=== PATIENT | female | born 1965 | race Hispanic/Latino ===

== ENCOUNTER 2021-02-13 16:29 | Inpatient (IN) | payer SELFPAY ==
[2021-02-13] MEDS ORDERED: Aspirin Chewable 81 MG TAB ONE (17:50)
[2021-02-13] MEDS ORDERED: Dexamethasone 10 MG/ML VIAL ONE (17:50)
[2021-02-13] MEDS ORDERED: cefTRIAXone\\ROCEPHIN 2 GM VIAL ONE (17:50)
[2021-02-13] MEDS ORDERED: Azithromycin 500 MG VIAL ONE (17:51)
[2021-02-13 18:47] LABS: #Monocytes 0.6 10x3/uL (0.0-1.1); %Basophils 0.1 % (0.0-2.0); %Lymphocytes 10.2 % (18.0-47.0); %Monocytes 5.3 % (0.0-10.0); Hemoglobin 15.7 g/dL (12.0-15.5); Mean Corpuscular HGB CONC 33.2 g/dL (32.0-36.0); Mean Corpuscular Hemoglobin 28.9 pg (27.0-33.0); Mean Corpuscular Volume 87.1 fl (81.6-98.3); Mean Platelet Volume 11.6 fl (7.4-10.4); Platelet Count 224 10x3/uL (150-450); RBC Distribution Width 13.9 % (11.5-14.5); Red Blood Cell (RBC) Count 5.43 10x6/uL (3.90-5.03); White Blood Cell (WBC) Count 10.7 10x3/uL (3.5-10.5)
[2021-02-13 18:48] LABS: ALT (SGPT) 113 U/L (8-55); AST (SGOT) 107 U/L (5-34); Albumin 3.7 g/dL (3.5-5.0); Alkaline Phosphatase 77 U/L (40-110); Anion Gap 22 mmol/L (10-20); BUN (Urea Nitrogen) 25 mg/dL (9.8-20.1); Bilirubin, Total 0.3 mg/dL (0.2-1.2); CK (CPK) 205 U/L (29-168); Calc. Creatinine Clearance 0 mL/min (70-130); Calcium 9.1 mg/dL (7.8-10.44); Carbon Dioxide 15 mmol/L (22-29); Chloride 96 mmol/L (98-107); Glucose 257 mg/dL (70-105); Lipase 65 U/L (8-78); Potassium 5.8 mmol/L (3.5-5.1); Protein, Total 7.7 g/dL (6.0-8.3); Sodium 127 mmol/L (136-145)
[2021-02-13 22:58] LABS: ALT (SGPT) 89 U/L (8-55); AST (SGOT) 82 U/L (5-34); Alkaline Phosphatase 62 U/L (40-110); Anion Gap 16 mmol/L (10-20); BUN (Urea Nitrogen) 20 mg/dL (9.8-20.1); Bilirubin, Total 0.2 mg/dL (0.2-1.2); Calc. Creatinine Clearance 0 mL/min (70-130); Carbon Dioxide 14 mmol/L (22-29); Chloride 103 mmol/L (98-107); Globulin 3.2 g/dL (2.4-3.5); Glucose 275 mg/dL (70-105); Potassium 5.7 mmol/L (3.5-5.1); Protein, Total 6.2 g/dL (6.0-8.3); Sodium 127 mmol/L (136-145)
[2021-02-13 23:03] LABS: Troponin I Less than 0.010 ng/mL (< 0.028)
[2021-02-14] MEDS ORDERED: Dextrose 5% in Water 1,000 ML IV PRN (01:29)
[2021-02-14] MEDS ORDERED: Dextrose 50% Abboject 50 ML SYRINGE SLOW IVP PRN (01:29)
[2021-02-14] MEDS ORDERED: Sodium Chloride 0.9% 1,000 ML IV SCH ×2 (01:30→01:45)
[2021-02-14] MEDS ORDERED: Senokot S 8.6-50 MG TAB PO PRN (01:35)
[2021-02-14] MEDS ORDERED: Ondansetron PF 4 MG/2 ML Vial IVP PRN (01:35)
[2021-02-14] MEDS ORDERED: Ondansetron ODT 4 MG TAB PO PRN (01:35)
[2021-02-14] MEDS: Acetaminophen 325 MG TAB PO PRN ×2 (03:16→21:01)
[2021-02-14] MEDS: HumaLOG 300 UNITS/3 ML VIAL SC PRN ×3 (03:46→21:01)
[2021-02-14 03:54] LABS: #Monocytes 0.3 10x3/uL (0.0-1.1); #Neutrophils 5.6 10x3/uL (1.5-8.4); %Lymphocytes 13.6 % (18.0-47.0); %Monocytes 4.5 % (0.0-10.0); %Neutrophils 81.5 % (40.0-75.0); Hemoglobin 12.5 g/dL (12.0-15.5); Mean Corpuscular HGB CONC 32.6 g/dL (32.0-36.0); Mean Corpuscular Hemoglobin 28.6 pg (27.0-33.0); Mean Corpuscular Volume 87.9 fl (81.6-98.3); Platelet Count 166 10x3/uL (150-450); RBC Distribution Width 13.9 % (11.5-14.5); Red Blood Cell (RBC) Count 4.37 10x6/uL (3.90-5.03); White Blood Cell (WBC) Count 6.9 10x3/uL (3.5-10.5)
[2021-02-14 03:55] LABS: Lactic Acid 2.1 mmol/L (0.5-2.2)
[2021-02-14 04:01] LABS: Anion Gap 15 mmol/L (10-20); BUN (Urea Nitrogen) 18 mg/dL (9.8-20.1); CRP (Inflammatory) 9.81 mg/dL (= or < 0.5); Calc. Creatinine Clearance 0 mL/min (70-130); Calcium 7.5 mg/dL (7.8-10.44); Carbon Dioxide 14 mmol/L (22-29); Chloride 107 mmol/L (98-107); Glucose 329 mg/dL (70-105); Potassium 4.6 mmol/L (3.5-5.1); Sodium 131 mmol/L (136-145)
[2021-02-14] MEDS ORDERED: Insulin Regular 300 UNITS/3 ML VIAL IVP SCH (05:45)
[2021-02-14] MEDS ORDERED: Lantus 1000 UNITS/10 ML VIAL SC SCH (09:00)
[2021-02-14] MEDS: Zinc Sulfate 220 MG CAP PO SCH ×2 (10:08→10:11)
[2021-02-14] MEDS: Dexamethasone 4 mg/ml Vial SLOW IVP SCH (10:08)
[2021-02-14] MEDS: Ascorbic Acid 500 mg Chewable Tablet PO SCH ×2 (10:08→10:10)
[2021-02-14] MEDS: Aspirin 81 mg Enteric Coated Tablet PO SCH (10:11)
[2021-02-14] MEDS: Enoxaparin Sodium 40 MG/0.4 ML SYRINGE SC SCH (10:11)
[2021-02-14] MEDS: Cholecalciferol 1,000 UNITS (25 MCG) TAB PO SCH (10:11)
[2021-02-14 13:41] LABS: Anion Gap 12 mmol/L (10-20); BUN (Urea Nitrogen) 19 mg/dL (9.8-20.1); Calc. Creatinine Clearance 84 mL/min (70-130); Calcium 8.4 mg/dL (7.8-10.44); Carbon Dioxide 18 mmol/L (22-29); Chloride 107 mmol/L (98-107); Glucose 277 mg/dL (70-105); Potassium 4.4 mmol/L (3.5-5.1); Sodium 133 mmol/L (136-145)
[2021-02-14] MEDS: Lantus 1000 UNITS/10 ML VIAL SC SCH (21:00)
[2021-02-15 06:28] LABS: ALT (SGPT) 55 U/L (8-55); AST (SGOT) 46 U/L (5-34); Albumin 2.9 g/dL (3.5-5.0); Alkaline Phosphatase 62 U/L (40-110); Anion Gap 12 mmol/L (10-20); BUN (Urea Nitrogen) 22 mg/dL (9.8-20.1); Bilirubin, Total 0.2 mg/dL (0.2-1.2); Calc. Creatinine Clearance 81 mL/min (70-130); Calcium 8.4 mg/dL (7.8-10.44); Carbon Dioxide 20 mmol/L (22-29); Chloride 108 mmol/L (98-107); Glucose 174 mg/dL (70-105); Magnesium 1.9 mg/dL (1.6-2.6); Potassium 3.9 mmol/L (3.5-5.1); Protein, Total 5.9 g/dL (6.0-8.3); Sodium 136 mmol/L (136-145)
[2021-02-15 06:37] LABS: #Monocytes 0.6 10x3/uL (0.0-1.1); #Neutrophils 8.8 10x3/uL (1.5-8.4); %Basophils 0.2 % (0.0-2.0); %Lymphocytes 14.6 % (18.0-47.0); %Monocytes 5.2 % (0.0-10.0); %Neutrophils 79.5 % (40.0-75.0); Hemoglobin 12.2 g/dL (12.0-15.5); Mean Corpuscular HGB CONC 33.1 g/dL (32.0-36.0); Mean Corpuscular Volume 87.6 fl (81.6-98.3); Platelet Count 202 10x3/uL (150-450); RBC Distribution Width 14.4 % (11.5-14.5); Red Blood Cell (RBC) Count 4.21 10x6/uL (3.90-5.03)
[2021-02-15] MEDS: Ascorbic Acid 500 mg Chewable Tablet PO SCH (08:28)
[2021-02-15] MEDS: Zinc Sulfate 220 MG CAP PO SCH (08:28)
[2021-02-15] MEDS: Lantus 1000 UNITS/10 ML VIAL SC SCH ×2 (08:29→20:50)
[2021-02-15] MEDS: Dexamethasone 4 mg/ml Vial SLOW IVP SCH (08:29)
[2021-02-15] MEDS: Aspirin 81 mg Enteric Coated Tablet PO SCH (08:29)
[2021-02-15] MEDS: Enoxaparin Sodium 40 MG/0.4 ML SYRINGE SC SCH (08:30)
[2021-02-15] MEDS: Cholecalciferol 1,000 UNITS (25 MCG) TAB PO SCH (08:30)
[2021-02-15 12:12] LABS: Hemoglobin A1c 8.1 % (4.0-6.0)
[2021-02-15] MEDS: Acetaminophen 325 MG TAB PO PRN ×2 (13:02→21:00)
[2021-02-15 18:37] LABS: SARS-CoV-2 NAA Rapid Test Not Detected (NotDetected)
[2021-02-15] MEDS: HumaLOG 300 UNITS/3 ML VIAL SC PRN (20:50)
[2021-02-16] MEDS: Aspirin 81 mg Enteric Coated Tablet PO SCH (09:14)
[2021-02-16] MEDS: Ascorbic Acid 500 mg Chewable Tablet PO SCH (09:14)
[2021-02-16] MEDS: Dexamethasone 4 mg/ml Vial SLOW IVP SCH (09:14)
[2021-02-16] MEDS: Enoxaparin Sodium 40 MG/0.4 ML SYRINGE SC SCH (09:14)
[2021-02-16] MEDS: Cholecalciferol 1,000 UNITS (25 MCG) TAB PO SCH (09:14)
[2021-02-16] MEDS: Lantus 1000 UNITS/10 ML VIAL SC SCH ×2 (09:15→22:22)
[2021-02-16] MEDS: Acetaminophen 325 MG TAB PO PRN (09:20)
[2021-02-16] MEDS: HumaLOG 300 UNITS/3 ML VIAL SC PRN ×2 (17:40→22:22)
[2021-02-16] MEDS ORDERED: Furosemide 20 MG/2 ML VIAL SLOW IVP SCH (17:45)
[2021-02-16] MEDS: cefTRIAXone\\ROCEPHIN 1 GM in Sodium Chloride 0.9% 100 ML IVPB SCH (19:30)
[2021-02-16] MEDS: Azithromycin 500 MG in Sodium Chloride 0.9% 250 ML 250 ML IVPB SCH (19:31)
[2021-02-16] MEDS: Atorvastatin Calcium 20 MG TAB PO SCH (20:56)
[2021-02-16] MEDS: Metoprolol Tartrate 25 MG TAB PO SCH (20:56)
[2021-02-16] MEDS: Benzonatate 100 MG CAP PO SCH (21:50)
[2021-02-16] MEDS: Mag-Al Plus 1200 MG/1200 MG/120 MG/30 ML UDCUP PO PRN (21:50)
[2021-02-17] MEDS: Guaifenesin DM 100-10/5 ML UDCUP PO PRN (04:50)
[2021-02-17 05:44] LABS: ALT (SGPT) 59 U/L (8-55); AST (SGOT) 51 U/L (5-34); Alkaline Phosphatase 70 U/L (40-110); Anion Gap 14 mmol/L (10-20); BUN (Urea Nitrogen) 14 mg/dL (9.8-20.1); Bilirubin, Total 0.3 mg/dL (0.2-1.2); CRP (Inflammatory) 11.59 mg/dL (= or < 0.5); Calc. Creatinine Clearance 97 mL/min (70-130); Calcium 8.8 mg/dL (7.8-10.44); Carbon Dioxide 22 mmol/L (22-29); Chloride 109 mmol/L (98-107); Globulin 3.4 g/dL (2.4-3.5); Glucose 163 mg/dL (70-105); Potassium 4.1 mmol/L (3.5-5.1); Protein, Total 6.4 g/dL (6.0-8.3); Sodium 141 mmol/L (136-145)
[2021-02-17] MEDS: HumaLOG 300 UNITS/3 ML VIAL SC PRN ×3 (06:16→22:41)
[2021-02-17] MEDS: Benzonatate 100 MG CAP PO SCH ×3 (06:31→20:35)
[2021-02-17] MEDS: Ascorbic Acid 500 mg Chewable Tablet PO SCH (08:42)
[2021-02-17] MEDS: Lisinopril 10 MG TAB PO SCH (08:42)
[2021-02-17] MEDS: Zinc Sulfate 220 MG CAP PO SCH (08:42)
[2021-02-17] MEDS: Clopidogrel Bisulfate 75 MG TAB PO SCH (08:43)
[2021-02-17] MEDS: Metoprolol Tartrate 25 MG TAB PO SCH ×2 (08:43→20:35)
[2021-02-17] MEDS: Cholecalciferol 1,000 UNITS (25 MCG) TAB PO SCH (08:43)
[2021-02-17] MEDS: Aspirin 81 mg Enteric Coated Tablet PO SCH (08:43)
[2021-02-17] MEDS: Enoxaparin Sodium 40 MG/0.4 ML SYRINGE SC SCH (08:44)
[2021-02-17] MEDS: Dexamethasone 4 mg/ml Vial SLOW IVP SCH ×2 (08:44→20:33)
[2021-02-17] MEDS: Lantus 1000 UNITS/10 ML VIAL SC SCH ×2 (08:45→20:39)
[2021-02-17 12:10] LABS: Actual Bicarbonate (HCO3a) 23.8 mEq/L (22-28); Base Excess (BEa) -0.4 mEq/L (-2.0 to +3.0); CO2 Tension 37.7 mmHg (35.0-45.0); Calcium, Ionized (arterial) 1.15 mmol/L (1.12-1.30); Carboxyhemoglobin (COHb) 0.3 gm% (0.0-3.0); Hemoglobin (Hb) 13.2 g/dL (12.0-16.0); O2 Tension (PaO2), arterial 70.1 mmHg (80.0-100.0); Potassium - ABG Lab 4.5 mmol/L (3.70-5.30); Puncture Site LRA; pH, Arterial 7.42 (7.35-7.45)
[2021-02-17 12:16] LABS: ALV-art Gradient 310.575 mmHg (0-20)
[2021-02-17] MEDS ORDERED: Famotidine 20 MG TAB PO SCH (13:15)
[2021-02-17] MEDS: Azithromycin 500 MG in Sodium Chloride 0.9% 250 ML 250 ML IVPB SCH (17:48)
[2021-02-17] MEDS: cefTRIAXone\\ROCEPHIN 1 GM in Sodium Chloride 0.9% 100 ML IVPB SCH (18:10)
[2021-02-17] MEDS: Acetaminophen 325 MG TAB PO PRN (20:31)
[2021-02-17] MEDS: Atorvastatin Calcium 20 MG TAB PO SCH (20:33)
[2021-02-17] MEDS: Famotidine 20 MG TAB PO SCH (20:34)
[2021-02-18] MEDS: HumaLOG 300 UNITS/3 ML VIAL SC PRN ×6 (00:15→20:18)
[2021-02-18 04:14] LABS: #Monocytes 0.3 10x3/uL (0.0-1.1); #Neutrophils 8.4 10x3/uL (1.5-8.4); %Basophils 0.4 % (0.0-2.0); %Lymphocytes 12.1 % (18.0-47.0); %Monocytes 2.9 % (0.0-10.0); %Neutrophils 80.2 % (40.0-75.0); Hemoglobin 11.7 g/dL (12.0-15.5); Mean Corpuscular HGB CONC 32.7 g/dL (32.0-36.0); Mean Corpuscular Hemoglobin 29.3 pg (27.0-33.0); Mean Corpuscular Volume 89.5 fl (81.6-98.3); Mean Platelet Volume 9.1 fl (7.4-10.4); RBC Distribution Width 14.3 % (11.5-14.5); White Blood Cell (WBC) Count 10.4 10x3/uL (3.5-10.5)
[2021-02-18 04:34] LABS: ALT (SGPT) 81 U/L (8-55); AST (SGOT) 55 U/L (5-34); Alkaline Phosphatase 79 U/L (40-110); Anion Gap 14 mmol/L (10-20); BUN (Urea Nitrogen) 21 mg/dL (9.8-20.1); Bilirubin, Total 0.4 mg/dL (0.2-1.2); Calc. Creatinine Clearance 90 mL/min (70-130); Calcium 8.9 mg/dL (7.8-10.44); Carbon Dioxide 23 mmol/L (22-29); Chloride 108 mmol/L (98-107); Globulin 3.3 g/dL (2.4-3.5); Glucose 234 mg/dL (70-105); Potassium 4.4 mmol/L (3.5-5.1); Protein, Total 6.3 g/dL (6.0-8.3); Sodium 141 mmol/L (136-145)
[2021-02-18] MEDS: Benzonatate 100 MG CAP PO SCH ×3 (05:08→20:17)
[2021-02-18 07:22] LABS: Platelet Count 312 10x3/uL (150-450)
[2021-02-18] MEDS: Lisinopril 10 MG TAB PO SCH (08:10)
[2021-02-18] MEDS: Metoprolol Tartrate 25 MG TAB PO SCH ×2 (08:10→20:17)
[2021-02-18] MEDS: Famotidine 20 MG TAB PO SCH ×2 (08:10→20:16)
[2021-02-18] MEDS: Enoxaparin Sodium 40 MG/0.4 ML SYRINGE SC SCH (08:10)
[2021-02-18] MEDS: Cholecalciferol 1,000 UNITS (25 MCG) TAB PO SCH (08:10)
[2021-02-18] MEDS: Aspirin 81 mg Enteric Coated Tablet PO SCH (08:10)
[2021-02-18] MEDS: Clopidogrel Bisulfate 75 MG TAB PO SCH (08:11)
[2021-02-18] MEDS: Dexamethasone 4 mg/ml Vial SLOW IVP SCH ×2 (08:11→20:16)
[2021-02-18] MEDS: Ascorbic Acid 500 mg Chewable Tablet PO SCH (08:11)
[2021-02-18] MEDS: Zinc Sulfate 220 MG CAP PO SCH (08:11)
[2021-02-18] MEDS: Lantus 1000 UNITS/10 ML VIAL SC SCH ×2 (08:17→20:17)
[2021-02-18] MEDS ORDERED: Furosemide 20 MG/2 ML VIAL SLOW IVP SCH (10:30)
[2021-02-18 11:43] LABS: Actual Bicarbonate (HCO3a) 25.3 mEq/L (22-28); Base Excess (BEa) 2.1 mEq/L (-2.0 to +3.0); CO2 Tension 34.5 mmHg (35.0-45.0); Calcium, Ionized (arterial) 1.18 mmol/L (1.12-1.30); Carboxyhemoglobin (COHb) 0.1 gm% (0.0-3.0); Hemoglobin (Hb) 12.4 g/dL (12.0-16.0); O2 Tension (PaO2), arterial 48.9 mmHg (80.0-100.0); Potassium - ABG Lab 4.3 mmol/L (3.70-5.30); Puncture Site LBA; pH, Arterial 7.48 (7.35-7.45)
[2021-02-18 11:46] LABS: ALV-art Gradient 407.075 mmHg (0-20)
[2021-02-18] MEDS: Acetaminophen 325 MG TAB PO PRN ×2 (13:53→20:15)
[2021-02-18] MEDS: cefTRIAXone\\ROCEPHIN 1 GM in Sodium Chloride 0.9% 100 ML IVPB SCH (17:20)
[2021-02-18] MEDS: Azithromycin 500 MG in Sodium Chloride 0.9% 250 ML 250 ML IVPB SCH (18:08)
[2021-02-18] MEDS: Atorvastatin Calcium 20 MG TAB PO SCH (20:16)
[2021-02-19 04:27] LABS: Hemoglobin 11.5 g/dL (12.0-15.5); Mean Corpuscular HGB CONC 32.5 g/dL (32.0-36.0); Mean Corpuscular Volume 89.2 fl (81.6-98.3); Mean Platelet Volume 9.7 fl (7.4-10.4); Platelet Count 308 10x3/uL (150-450); RBC Distribution Width 14.3 % (11.5-14.5); Red Blood Cell (RBC) Count 3.97 10x6/uL (3.90-5.03); White Blood Cell (WBC) Count 10.5 10x3/uL (3.5-10.5)
[2021-02-19 04:37] LABS: ALT (SGPT) 107 U/L (8-55); AST (SGOT) 55 U/L (5-34); Alkaline Phosphatase 76 U/L (40-110); Anion Gap 11 mmol/L (10-20); BUN (Urea Nitrogen) 27 mg/dL (9.8-20.1); Bilirubin, Total 0.4 mg/dL (0.2-1.2); Calc. Creatinine Clearance 96 mL/min (70-130); Calcium 9.2 mg/dL (7.8-10.44); Carbon Dioxide 26 mmol/L (22-29); Chloride 109 mmol/L (98-107); Globulin 3.3 g/dL (2.4-3.5); Glucose 221 mg/dL (70-105); Potassium 4.2 mmol/L (3.5-5.1); Protein, Total 6.3 g/dL (6.0-8.3); Sodium 142 mmol/L (136-145)
[2021-02-19] MEDS: HumaLOG 300 UNITS/3 ML VIAL SC PRN ×5 (04:52→21:57)
[2021-02-19 05:10] LABS: MDiff Complete? YES
[2021-02-19 05:16] LABS: Band 4 % (5-11); Lymphocytes 9 % (21-51); Monocytes 9 % (0-10); Myelocyte 1 % (0-0); Neutrophil 76 % (42-75); Reactive Lymphocytes 1 % (0-10)
[2021-02-19] MEDS: Benzonatate 100 MG CAP PO SCH ×3 (07:26→21:47)
[2021-02-19] MEDS: Lantus 1000 UNITS/10 ML VIAL SC SCH ×2 (07:37→21:55)
[2021-02-19] MEDS: Dexamethasone 4 mg/ml Vial SLOW IVP SCH ×2 (07:38→21:46)
[2021-02-19] MEDS: Enoxaparin Sodium 40 MG/0.4 ML SYRINGE SC SCH (07:39)
[2021-02-19] MEDS: Cholecalciferol 1,000 UNITS (25 MCG) TAB PO SCH (07:40)
[2021-02-19] MEDS: Zinc Sulfate 220 MG CAP PO SCH (07:40)
[2021-02-19] MEDS: Aspirin 81 mg Enteric Coated Tablet PO SCH (07:40)
[2021-02-19] MEDS: Lisinopril 10 MG TAB PO SCH (07:40)
[2021-02-19] MEDS: Famotidine 20 MG TAB PO SCH ×2 (07:40→21:46)
[2021-02-19] MEDS: Clopidogrel Bisulfate 75 MG TAB PO SCH (07:40)
[2021-02-19] MEDS: Ascorbic Acid 500 mg Chewable Tablet PO SCH ×2 (07:41→07:42)
[2021-02-19] MEDS: Metoprolol Tartrate 25 MG TAB PO SCH ×2 (07:42→21:47)
[2021-02-19 09:48] LABS: Actual Bicarbonate (HCO3a) 23.1 mEq/L (22-28); Base Excess (BEa) 0.3 mEq/L (-2.0 to +3.0); CO2 Tension 31.8 mmHg (35.0-45.0); Calcium, Ionized (arterial) 1.19 mmol/L (1.12-1.30); Carboxyhemoglobin (COHb) 0.3 gm% (0.0-3.0); Hemoglobin (Hb) 12.6 g/dL (12.0-16.0); O2 Tension (PaO2), arterial 73.3 mmHg (80.0-100.0); Puncture Site RRA; pH, Arterial 7.48 (7.35-7.45)
[2021-02-19] MEDS: cefTRIAXone\\ROCEPHIN 1 GM in Sodium Chloride 0.9% 100 ML IVPB SCH (17:09)
[2021-02-19] MEDS: Mag-Al Plus 1200 MG/1200 MG/120 MG/30 ML UDCUP PO PRN (17:09)
[2021-02-19] MEDS: Azithromycin 500 MG in Sodium Chloride 0.9% 250 ML 250 ML IVPB SCH (17:44)
[2021-02-19] MEDS: Atorvastatin Calcium 20 MG TAB PO SCH (21:46)
[2021-02-19] MEDS ORDERED: Lantus 1000 UNITS/10 ML VIAL SC SCH (22:00)
[2021-02-19] MEDS: Acetaminophen 325 MG TAB PO PRN (23:51)
[2021-02-20] MEDS: Mag-Al Plus 1200 MG/1200 MG/120 MG/30 ML UDCUP PO PRN (00:11)
[2021-02-20 05:23] LABS: Hemoglobin 11.2 g/dL (12.0-15.5); Mean Corpuscular HGB CONC 31.2 g/dL (32.0-36.0); Mean Corpuscular Hemoglobin 28.7 pg (27.0-33.0); Mean Corpuscular Volume 92.1 fl (81.6-98.3); Mean Platelet Volume 9.6 fl (7.4-10.4); Platelet Count 329 10x3/uL (150-450); RBC Distribution Width 14.1 % (11.5-14.5); White Blood Cell (WBC) Count 10.8 10x3/uL (3.5-10.5)
[2021-02-20 05:29] LABS: MDiff Complete? YES
[2021-02-20 05:36] LABS: ALT (SGPT) 87 U/L (8-55); AST (SGOT) 39 U/L (5-34); Albumin 3.1 g/dL (3.5-5.0); Alkaline Phosphatase 70 U/L (40-110); Anion Gap 12 mmol/L (10-20); BUN (Urea Nitrogen) 25 mg/dL (9.8-20.1); Bilirubin, Total 0.4 mg/dL (0.2-1.2); Calc. Creatinine Clearance 94 mL/min (70-130); Calcium 8.9 mg/dL (7.8-10.44); Carbon Dioxide 24 mmol/L (22-29); Chloride 108 mmol/L (98-107); Globulin 3.1 g/dL (2.4-3.5); Glucose 234 mg/dL (70-105); Potassium 4.6 mmol/L (3.5-5.1); Protein, Total 6.2 g/dL (6.0-8.3); Sodium 139 mmol/L (136-145)
[2021-02-20] MEDS: Benzonatate 100 MG CAP PO SCH ×3 (05:45→21:43)
[2021-02-20] MEDS: HumaLOG 300 UNITS/3 ML VIAL SC PRN ×5 (05:45→21:40)
[2021-02-20 05:46] LABS: Band 4 % (5-11); Lymphocytes 14 % (21-51); Metamyelocyte 2 % (0-0); Monocytes 4 % (0-10); Myelocyte 1 % (0-0); Neutrophil 74 % (42-75); Reactive Lymphocytes 1 % (0-10)
[2021-02-20] MEDS: Dexamethasone 4 mg/ml Vial SLOW IVP SCH ×2 (08:16→21:43)
[2021-02-20] MEDS: Enoxaparin Sodium 40 MG/0.4 ML SYRINGE SC SCH (08:16)
[2021-02-20] MEDS: Aspirin 81 mg Enteric Coated Tablet PO SCH (08:17)
[2021-02-20] MEDS: Zinc Sulfate 220 MG CAP PO SCH (08:17)
[2021-02-20] MEDS: Metoprolol Tartrate 25 MG TAB PO SCH ×2 (08:17→21:44)
[2021-02-20] MEDS: Famotidine 20 MG TAB PO SCH ×2 (08:17→21:43)
[2021-02-20] MEDS: Cholecalciferol 1,000 UNITS (25 MCG) TAB PO SCH (08:17)
[2021-02-20] MEDS: Lisinopril 10 MG TAB PO SCH (08:17)
[2021-02-20] MEDS: Clopidogrel Bisulfate 75 MG TAB PO SCH (08:18)
[2021-02-20] MEDS: Lantus 1000 UNITS/10 ML VIAL SC SCH ×2 (08:19→21:43)
[2021-02-20] MEDS: Acetylcysteine 20% 200 MG/ML 30 ML VIAL INH SCH ×2 (14:49→23:18)
[2021-02-20] MEDS: cefTRIAXone\\ROCEPHIN 1 GM in Sodium Chloride 0.9% 100 ML IVPB SCH (17:08)
[2021-02-20] MEDS: Azithromycin 500 MG in Sodium Chloride 0.9% 250 ML 250 ML IVPB SCH (18:22)
[2021-02-20] MEDS: Atorvastatin Calcium 20 MG TAB PO SCH (21:44)
[2021-02-21] MEDS: Guaifenesin DM 100-10/5 ML UDCUP PO PRN (00:20)
[2021-02-21] MEDS: Acetylcysteine 20% 200 MG/ML 30 ML VIAL INH SCH ×4 (03:04→22:10)
[2021-02-21 04:30] LABS: Hemoglobin 12.1 g/dL (12.0-15.5); Mean Corpuscular HGB CONC 32.3 g/dL (32.0-36.0); Mean Corpuscular Volume 89.9 fl (81.6-98.3); Mean Platelet Volume 9.6 fl (7.4-10.4); Platelet Count 348 10x3/uL (150-450); RBC Distribution Width 13.7 % (11.5-14.5); Red Blood Cell (RBC) Count 4.17 10x6/uL (3.90-5.03); White Blood Cell (WBC) Count 11.1 10x3/uL (3.5-10.5)
[2021-02-21 04:36] LABS: ALT (SGPT) 79 U/L (8-55); AST (SGOT) 33 U/L (5-34); Albumin 3.2 g/dL (3.5-5.0); Alkaline Phosphatase 79 U/L (40-110); Anion Gap 16 mmol/L (10-20); BUN (Urea Nitrogen) 20 mg/dL (9.8-20.1); Bilirubin, Total 0.5 mg/dL (0.2-1.2); Calc. Creatinine Clearance 96 mL/min (70-130); Calcium 9.1 mg/dL (7.8-10.44); Carbon Dioxide 22 mmol/L (22-29); Chloride 108 mmol/L (98-107); Globulin 3.3 g/dL (2.4-3.5); Glucose 186 mg/dL (70-105); Potassium 4.5 mmol/L (3.5-5.1); Protein, Total 6.5 g/dL (6.0-8.3); Sodium 141 mmol/L (136-145)
[2021-02-21] MEDS: Benzonatate 100 MG CAP PO SCH ×3 (05:17→20:46)
[2021-02-21 06:52] LABS: Band 6 % (5-11); Lymphocytes 10 % (21-51); Metamyelocyte 1 % (0-0); Monocytes 3 % (0-10); Myelocyte 1 % (0-0); Neutrophil 77 % (42-75); Reactive Lymphocytes 2 % (0-10)
[2021-02-21 06:54] LABS: Large Platelets SLIGHT; Platelet Morphology Comment Appears Adequate
[2021-02-21 06:55] LABS: MDiff Complete? YES; Manual Diff?? YES; RBC Morphology Normal
[2021-02-21] MEDS: Lisinopril 10 MG TAB PO SCH (08:01)
[2021-02-21] MEDS: Dexamethasone 4 mg/ml Vial SLOW IVP SCH ×2 (08:01→20:46)
[2021-02-21] MEDS: Ascorbic Acid 500 mg Chewable Tablet PO SCH (08:01)
[2021-02-21] MEDS: Cholecalciferol 1,000 UNITS (25 MCG) TAB PO SCH (08:01)
[2021-02-21] MEDS: Zinc Sulfate 220 MG CAP PO SCH (08:01)
[2021-02-21] MEDS: Famotidine 20 MG TAB PO SCH ×2 (08:01→20:45)
[2021-02-21] MEDS: Metoprolol Tartrate 25 MG TAB PO SCH ×2 (08:02→20:44)
[2021-02-21] MEDS: Aspirin 81 mg Enteric Coated Tablet PO SCH (08:02)
[2021-02-21] MEDS: Enoxaparin Sodium 40 MG/0.4 ML SYRINGE SC SCH (08:02)
[2021-02-21] MEDS: Clopidogrel Bisulfate 75 MG TAB PO SCH (08:02)
[2021-02-21] MEDS: Lantus 1000 UNITS/10 ML VIAL SC SCH ×2 (08:07→20:46)
[2021-02-21] MEDS: HumaLOG 300 UNITS/3 ML VIAL SC PRN ×4 (11:01→17:23)
[2021-02-21] MEDS: Acetaminophen 325 MG TAB PO PRN ×2 (13:48→20:44)
[2021-02-21] MEDS: cefTRIAXone\\ROCEPHIN 1 GM in Sodium Chloride 0.9% 100 ML IVPB SCH (17:23)
[2021-02-21] MEDS: Atorvastatin Calcium 20 MG TAB PO SCH (20:45)
[2021-02-22] MEDS: Acetylcysteine 20% 200 MG/ML 30 ML VIAL INH SCH ×4 (02:13→20:06)
[2021-02-22] MEDS: HumaLOG 300 UNITS/3 ML VIAL SC PRN ×3 (05:14→19:09)
[2021-02-22] MEDS: Benzonatate 100 MG CAP PO SCH ×3 (05:31→21:41)
[2021-02-22] MEDS: Lisinopril 10 MG TAB PO SCH ×2 (08:58→09:10)
[2021-02-22] MEDS: Metoprolol Tartrate 25 MG TAB PO SCH ×3 (08:59→21:44)
[2021-02-22] MEDS ORDERED: Dexamethasone 4 mg/ml Vial SLOW IVP SCH (09:00)
[2021-02-22] MEDS: Ascorbic Acid 500 mg Chewable Tablet PO SCH (09:09)
[2021-02-22] MEDS: Aspirin 81 mg Enteric Coated Tablet PO SCH (09:10)
[2021-02-22] MEDS: Clopidogrel Bisulfate 75 MG TAB PO SCH (09:10)
[2021-02-22] MEDS: Famotidine 20 MG TAB PO SCH ×2 (09:10→21:44)
[2021-02-22] MEDS: Zinc Sulfate 220 MG CAP PO SCH (09:10)
[2021-02-22] MEDS: Enoxaparin Sodium 40 MG/0.4 ML SYRINGE SC SCH (09:10)
[2021-02-22] MEDS: Cholecalciferol 1,000 UNITS (25 MCG) TAB PO SCH (09:10)
[2021-02-22] MEDS: Lantus 1000 UNITS/10 ML VIAL SC SCH ×2 (09:15→21:42)
[2021-02-22] MEDS: Acetaminophen 325 MG TAB PO PRN (10:30)
[2021-02-22] MEDS: Guaifenesin DM 100-10/5 ML UDCUP PO PRN (10:30)
[2021-02-22] MEDS: Mag-Al Plus 1200 MG/1200 MG/120 MG/30 ML UDCUP PO PRN (19:10)
[2021-02-22] MEDS: Atorvastatin Calcium 20 MG TAB PO SCH (21:44)
[2021-02-23] MEDS: Acetylcysteine 20% 200 MG/ML 30 ML VIAL INH SCH ×4 (00:17→20:38)
[2021-02-23 05:32] LABS: #Eosinphils 0.2 10x3/uL (0.0-0.5); #Monocytes 0.4 10x3/uL (0.0-1.1); #Neutrophils 12.8 10x3/uL (1.5-8.4); %Basophils 0.1 % (0.0-2.0); %Eosinophils 0.9 % (0.0-6.0); %Lymphocytes 18.8 % (18.0-47.0); %Monocytes 2.3 % (0.0-10.0); %Neutrophils 75.9 % (40.0-75.0); Hemoglobin 12.5 g/dL (12.0-15.5); Mean Corpuscular HGB CONC 31.4 g/dL (32.0-36.0); Mean Corpuscular Hemoglobin 28.9 pg (27.0-33.0); Mean Corpuscular Volume 91.9 fl (81.6-98.3); Mean Platelet Volume 10.1 fl (7.4-10.4); Platelet Count 397 10x3/uL (150-450); RBC Distribution Width 13.6 % (11.5-14.5); Red Blood Cell (RBC) Count 4.33 10x6/uL (3.90-5.03); White Blood Cell (WBC) Count 16.8 10x3/uL (3.5-10.5)
[2021-02-23 05:44] LABS: ALT (SGPT) 72 U/L (8-55); AST (SGOT) 38 U/L (5-34); Albumin 3.2 g/dL (3.5-5.0); Alkaline Phosphatase 64 U/L (40-110); Anion Gap 14 mmol/L (10-20); BUN (Urea Nitrogen) 26 mg/dL (9.8-20.1); Bilirubin, Total 0.5 mg/dL (0.2-1.2); Calc. Creatinine Clearance 100 mL/min (70-130); Calcium 9.1 mg/dL (7.8-10.44); Carbon Dioxide 21 mmol/L (22-29); Chloride 110 mmol/L (98-107); Globulin 3.1 g/dL (2.4-3.5); Glucose 83 mg/dL (70-105); Potassium 3.9 mmol/L (3.5-5.1); Protein, Total 6.3 g/dL (6.0-8.3); Sodium 141 mmol/L (136-145)
[2021-02-23] MEDS: Ascorbic Acid 500 mg Chewable Tablet PO SCH (08:50)
[2021-02-23] MEDS: Famotidine 20 MG TAB PO SCH ×2 (08:50→22:30)
[2021-02-23] MEDS: Cholecalciferol 1,000 UNITS (25 MCG) TAB PO SCH (08:50)
[2021-02-23] MEDS: Clopidogrel Bisulfate 75 MG TAB PO SCH (08:50)
[2021-02-23] MEDS: Dexamethasone 4 mg/ml Vial SLOW IVP SCH (08:50)
[2021-02-23] MEDS: Aspirin 81 mg Enteric Coated Tablet PO SCH (08:50)
[2021-02-23] MEDS: Zinc Sulfate 220 MG CAP PO SCH (08:50)
[2021-02-23] MEDS: Enoxaparin Sodium 40 MG/0.4 ML SYRINGE SC SCH (08:50)
[2021-02-23] MEDS: Benzonatate 100 MG CAP PO SCH ×3 (08:51→22:31)
[2021-02-23] MEDS: Guaifenesin DM 100-10/5 ML UDCUP PO PRN (08:56)
[2021-02-23] MEDS: Lisinopril 10 MG TAB PO SCH (08:56)
[2021-02-23] MEDS: Metoprolol Tartrate 25 MG TAB PO SCH ×2 (08:57→22:37)
[2021-02-23] MEDS: Lantus 1000 UNITS/10 ML VIAL SC SCH ×2 (08:57→22:32)
[2021-02-23] MEDS: Acetaminophen 325 MG TAB PO PRN (10:00)
[2021-02-23] MEDS: Atorvastatin Calcium 20 MG TAB PO SCH (22:30)
[2021-02-23] MEDS: HumaLOG 300 UNITS/3 ML VIAL SC PRN (22:33)
[2021-02-24] MEDS: Acetylcysteine 20% 200 MG/ML 30 ML VIAL INH SCH ×2 (03:00→06:36)
[2021-02-24 06:05] LABS: ALT (SGPT) 54 U/L (8-55); AST (SGOT) 22 U/L (5-34); Alkaline Phosphatase 63 U/L (40-110); Anion Gap 13 mmol/L (10-20); BUN (Urea Nitrogen) 22 mg/dL (9.8-20.1); Bilirubin, Total 0.4 mg/dL (0.2-1.2); Calc. Creatinine Clearance 105 mL/min (70-130); Calcium 8.9 mg/dL (7.8-10.44); Carbon Dioxide 22 mmol/L (22-29); Chloride 111 mmol/L (98-107); Globulin 3.1 g/dL (2.4-3.5); Glucose 65 mg/dL (70-105); Potassium 3.8 mmol/L (3.5-5.1); Protein, Total 6.1 g/dL (6.0-8.3); Sodium 142 mmol/L (136-145)
[2021-02-24 06:10] LABS: #Eosinphils 0.3 10x3/uL (0.0-0.5); #Monocytes 0.3 10x3/uL (0.0-1.1); #Neutrophils 8.5 10x3/uL (1.5-8.4); %Basophils 0.2 % (0.0-2.0); %Eosinophils 2.2 % (0.0-6.0); %Lymphocytes 20.7 % (18.0-47.0); %Monocytes 2.7 % (0.0-10.0); %Neutrophils 72.8 % (40.0-75.0); Hemoglobin 12.1 g/dL (12.0-15.5); Mean Corpuscular HGB CONC 31.5 g/dL (32.0-36.0); Mean Corpuscular Hemoglobin 28.6 pg (27.0-33.0); Mean Corpuscular Volume 90.8 fl (81.6-98.3); Mean Platelet Volume 10.2 fl (7.4-10.4); Platelet Count 333 10x3/uL (150-450); RBC Distribution Width 13.8 % (11.5-14.5); Red Blood Cell (RBC) Count 4.23 10x6/uL (3.90-5.03); White Blood Cell (WBC) Count 11.7 10x3/uL (3.5-10.5)
[2021-02-24 08:22] LABS: Glucose 288 mg/dL (70-105)
[2021-02-24] MEDS: Famotidine 20 MG TAB PO SCH ×2 (09:19→21:40)
[2021-02-24] MEDS: Guaifenesin DM 100-10/5 ML UDCUP PO PRN ×2 (09:19→17:45)
[2021-02-24] MEDS: Enoxaparin Sodium 40 MG/0.4 ML SYRINGE SC SCH (09:20)
[2021-02-24] MEDS: Aspirin 81 mg Enteric Coated Tablet PO SCH (09:20)
[2021-02-24] MEDS: Ascorbic Acid 500 mg Chewable Tablet PO SCH (09:20)
[2021-02-24] MEDS: Dexamethasone 4 mg/ml Vial SLOW IVP SCH (09:20)
[2021-02-24] MEDS: Zinc Sulfate 220 MG CAP PO SCH (09:21)
[2021-02-24] MEDS: Benzonatate 100 MG CAP PO SCH ×3 (09:21→21:40)
[2021-02-24] MEDS: Clopidogrel Bisulfate 75 MG TAB PO SCH (09:21)
[2021-02-24] MEDS: Cholecalciferol 1,000 UNITS (25 MCG) TAB PO SCH (09:21)
[2021-02-24] MEDS: Lantus 1000 UNITS/10 ML VIAL SC SCH ×2 (09:22→21:41)
[2021-02-24] MEDS: Lisinopril 10 MG TAB PO SCH (09:24)
[2021-02-24] MEDS: Metoprolol Tartrate 25 MG TAB PO SCH (09:35)
[2021-02-24] MEDS ORDERED: Calcium Carbonate 500 MG ChewTAB PO PRN (15:10)
[2021-02-24] MEDS ORDERED: Meclizine HCl 12.5 MG TAB PO PRN (15:50)
[2021-02-24] MEDS: HumaLOG 300 UNITS/3 ML VIAL SC PRN ×2 (17:45→21:42)
[2021-02-24] MEDS: Atorvastatin Calcium 20 MG TAB PO SCH (21:40)
[2021-02-24] MEDS: Mag-Al Plus 1200 MG/1200 MG/120 MG/30 ML UDCUP PO PRN (21:54)
[2021-02-25] MEDS: Benzonatate 100 MG CAP PO SCH ×3 (06:46→21:16)
[2021-02-25 07:13] LABS: #Eosinphils 0.2 10x3/uL (0.0-0.5); #Monocytes 0.3 10x3/uL (0.0-1.1); #Neutrophils 7.6 10x3/uL (1.5-8.4); %Basophils 0.3 % (0.0-2.0); %Eosinophils 1.6 % (0.0-6.0); %Lymphocytes 19.4 % (18.0-47.0); %Monocytes 3.3 % (0.0-10.0); %Neutrophils 74.3 % (40.0-75.0); Hemoglobin 11.9 g/dL (12.0-15.5); Mean Corpuscular HGB CONC 31.9 g/dL (32.0-36.0); Mean Corpuscular Hemoglobin 29.4 pg (27.0-33.0); Mean Corpuscular Volume 92.1 fl (81.6-98.3); Mean Platelet Volume 10.3 fl (7.4-10.4); Platelet Count 377 10x3/uL (150-450); RBC Distribution Width 14.1 % (11.5-14.5); Red Blood Cell (RBC) Count 4.05 10x6/uL (3.90-5.03); White Blood Cell (WBC) Count 10.2 10x3/uL (3.5-10.5)
[2021-02-25 07:32] LABS: ALT (SGPT) 57 U/L (8-55); AST (SGOT) 26 U/L (5-34); Albumin 3.1 g/dL (3.5-5.0); Alkaline Phosphatase 61 U/L (40-110); Anion Gap 13 mmol/L (10-20); BUN (Urea Nitrogen) 23 mg/dL (9.8-20.1); Bilirubin, Total 0.5 mg/dL (0.2-1.2); Calc. Creatinine Clearance 107 mL/min (70-130); Calcium 9.2 mg/dL (7.8-10.44); Carbon Dioxide 21 mmol/L (22-29); Chloride 109 mmol/L (98-107); Globulin 3.2 g/dL (2.4-3.5); Glucose 121 mg/dL (70-105); Potassium 3.8 mmol/L (3.5-5.1); Protein, Total 6.3 g/dL (6.0-8.3); Sodium 139 mmol/L (136-145)
[2021-02-25 09:09] VITALS: BMI 24.7
[2021-02-25] MEDS: Clopidogrel Bisulfate 75 MG TAB PO SCH (09:46)
[2021-02-25] MEDS: Aspirin 81 mg Enteric Coated Tablet PO SCH (09:46)
[2021-02-25] MEDS: Ascorbic Acid 500 mg Chewable Tablet PO SCH (09:46)
[2021-02-25] MEDS: Cholecalciferol 1,000 UNITS (25 MCG) TAB PO SCH (09:46)
[2021-02-25] MEDS: Famotidine 20 MG TAB PO SCH ×2 (09:46→21:16)
[2021-02-25] MEDS: Zinc Sulfate 220 MG CAP PO SCH (09:46)
[2021-02-25] MEDS: Enoxaparin Sodium 40 MG/0.4 ML SYRINGE SC SCH (09:47)
[2021-02-25] MEDS: Dexamethasone 4 mg/ml Vial SLOW IVP SCH (09:47)
[2021-02-25] MEDS: Lantus 1000 UNITS/10 ML VIAL SC SCH ×2 (09:47→21:17)
[2021-02-25] MEDS: Mag-Al Plus 1200 MG/1200 MG/120 MG/30 ML UDCUP PO PRN (16:32)
[2021-02-25] MEDS: HumaLOG 300 UNITS/3 ML VIAL SC PRN (16:32)
[2021-02-25] MEDS: Atorvastatin Calcium 20 MG TAB PO SCH (21:16)
[2021-02-26] MEDS: Benzonatate 100 MG CAP PO SCH ×3 (06:25→20:55)
[2021-02-26] MEDS: HumaLOG 300 UNITS/3 ML VIAL SC PRN ×4 (06:28→20:57)
[2021-02-26 08:05] LABS: #Eosinphils 0.1 10x3/uL (0.0-0.5); #Monocytes 0.5 10x3/uL (0.0-1.1); #Neutrophils 7.8 10x3/uL (1.5-8.4); %Basophils 0.1 % (0.0-2.0); %Eosinophils 0.7 % (0.0-6.0); %Lymphocytes 18.4 % (18.0-47.0); %Monocytes 4.4 % (0.0-10.0); %Neutrophils 75.5 % (40.0-75.0); Hemoglobin 11.8 g/dL (12.0-15.5); Mean Corpuscular HGB CONC 31.9 g/dL (32.0-36.0); Mean Corpuscular Hemoglobin 29.3 pg (27.0-33.0); Mean Corpuscular Volume 91.8 fl (81.6-98.3); Mean Platelet Volume 10.6 fl (7.4-10.4); Platelet Count 378 10x3/uL (150-450); RBC Distribution Width 13.8 % (11.5-14.5); Red Blood Cell (RBC) Count 4.03 10x6/uL (3.90-5.03); White Blood Cell (WBC) Count 10.3 10x3/uL (3.5-10.5)
[2021-02-26 08:28] LABS: ALT (SGPT) 61 U/L (8-55); AST (SGOT) 24 U/L (5-34); Albumin 3.1 g/dL (3.5-5.0); Alkaline Phosphatase 54 U/L (40-110); Anion Gap 13 mmol/L (10-20); BUN (Urea Nitrogen) 25 mg/dL (9.8-20.1); Bilirubin, Total 0.5 mg/dL (0.2-1.2); Calc. Creatinine Clearance 97 mL/min (70-130); Calcium 9.1 mg/dL (7.8-10.44); Carbon Dioxide 23 mmol/L (22-29); Chloride 107 mmol/L (98-107); Globulin 3.1 g/dL (2.4-3.5); Glucose 153 mg/dL (70-105); Protein, Total 6.2 g/dL (6.0-8.3); Sodium 139 mmol/L (136-145)
[2021-02-26] MEDS: Lantus 1000 UNITS/10 ML VIAL SC SCH ×2 (09:03→20:55)
[2021-02-26] MEDS: Enoxaparin Sodium 40 MG/0.4 ML SYRINGE SC SCH (09:09)
[2021-02-26] MEDS: Aspirin 81 mg Enteric Coated Tablet PO SCH (09:10)
[2021-02-26] MEDS: Ascorbic Acid 500 mg Chewable Tablet PO SCH (09:10)
[2021-02-26] MEDS: Dexamethasone 4 mg/ml Vial SLOW IVP SCH (09:10)
[2021-02-26] MEDS: Famotidine 20 MG TAB PO SCH ×2 (09:10→20:55)
[2021-02-26] MEDS: Cholecalciferol 1,000 UNITS (25 MCG) TAB PO SCH (09:10)
[2021-02-26] MEDS: Clopidogrel Bisulfate 75 MG TAB PO SCH (09:10)
[2021-02-26] MEDS: Zinc Sulfate 220 MG CAP PO SCH (09:10)
[2021-02-26] MEDS: Atorvastatin Calcium 20 MG TAB PO SCH (20:55)
[2021-02-26] MEDS: Acetaminophen 325 MG TAB PO PRN (21:01)
[2021-02-27] MEDS: Benzonatate 100 MG CAP PO SCH (05:16)
[2021-02-27] MEDS ORDERED: Dexamethasone 4 MG TAB PO SCH (09:00)
[2021-02-27] MEDS: Ascorbic Acid 500 mg Chewable Tablet PO SCH (09:29)
[2021-02-27] MEDS: Famotidine 20 MG TAB PO SCH (09:29)
[2021-02-27] MEDS: Aspirin 81 mg Enteric Coated Tablet PO SCH (09:29)
[2021-02-27] MEDS: Lantus 1000 UNITS/10 ML VIAL SC SCH (09:30)
[2021-02-27] MEDS: Zinc Sulfate 220 MG CAP PO SCH (09:30)
[2021-02-27] MEDS: Enoxaparin Sodium 40 MG/0.4 ML SYRINGE SC SCH (09:30)
[2021-02-27] MEDS: Cholecalciferol 1,000 UNITS (25 MCG) TAB PO SCH (09:30)
[2021-02-27] MEDS: Clopidogrel Bisulfate 75 MG TAB PO SCH (09:30)
[2021-02-27 18:00] VITALS: BP 107/55; TEMP 97.7
== END 2021-02-27 17:30 | disposition home or self-care (01) | DRG 177 ==
LOC: CSHERS 16:29 → CSHTELE 02-14 01:49 → CSHIMCU 02-17 14:20 → CSHTELE 02-21 13:03
PROVIDERS: ADMIT Family Medicine; ATTEND Family Medicine
PROC: 8E0ZXY6 Isolation (ICD-10-PCS; principal; 2021-02-14)
DX: U07.1 COVID-19 (principal); J96.01 Acute respiratory failure with hypoxia; J12.82 Pneumonia due to coronavirus disease 2019; E87.2 Acidosis; E87.1 Hypo-osmolality and hyponatremia; E86.0 Dehydration; E87.5 Hyperkalemia; E66.9 Obesity, unspecified; E11.65 Type 2 diabetes mellitus with hyperglycemia; E78.5 Hyperlipidemia, unspecified; Z68.25 Body mass index [BMI] 25.0-25.9, adult; Z71.3 Dietary counseling and surveillance; Z79.84 Long term (current) use of oral hypoglycemic drugs; Z79.899 Other long term (current) drug therapy
CPT/HCPCS: 0240U; 36415; 36416; 36600; 70551; 71045; 71275; 80048; 80053; 82010; 82550; 82805; 83036; 83605; 83690; 83735; 83880; 84145; 84484; 85025; 85379; 86140; 87040; 93005; 93010; 93306; 94640; 94760; 96365; 96366; 96367; 96375; J0132; J0456; J0696; J1100; J1650; J1815; J1940; J2405; J3490; J7050; J8540; Q0162